=== PATIENT | female | born 1990 | race Caucasian/White ===

== ENCOUNTER 2020-08-09 05:02 | Emergency (ER) | payer OTHER, SELFPAY ==
--- NOTE | ~2020-08-09 | XR_ITS ---
EXAMINATION: XR CHEST CLINICAL INFORMATION: Shortness of breath COMPARISON: None TECHNIQUE: Frontal view of the chest was obtained. FINDINGS: Normal symmetric lung volumes. No parenchymal consolidation. No pleural effusion. No pneumothorax. Cardiomediastinal silhouette and pulmonary vascularity are within normal limits. No acute osseous abnormalities. XR/XR chest 1V IMPRESSION: Unremarkable examination.
[2020-08-09 05:11] VITALS: BP 136/83; PULSE 95; RESP 24; TEMP 36.7; O2SAT 95; BMI 28.3
[2020-08-09 06:00] VITALS: PULSE 78; RESP 16; O2SAT 98
[2020-08-09 06:17] VITALS: O2SAT 98
[2020-08-09] MEDS: Albuterol Sulfate 90 MCG 8 GM INHALER 2 PUFF INHALE (06:31)
[2020-08-09 06:32] VITALS: PULSE 81; O2SAT 96
[2020-08-09] MEDS: predniSONE 20 MG TABLET 40 MG PO (06:43)
--- NOTE | 2020-08-09 06:47 | ED.URI ---
HPI - URI/Sore Throat General Chief Complaint: Upper Respiratory Symptoms Stated Complaint: Extreme Fatigue for about 3 days Time Seen by Provider: 08/09/20 06:18 History of Present Illness HPI Narrative: Patient is a 30-year-old female with a history of asthma. Patient never been admitted to the hospital in the past multiple ED visits in the past. Complaining of coughing upper respiratory symptoms. She did not receive her coronavirus vaccine. Patient from home. Positive history of smoking. No chest pain. Complaining of increasing shortness of breath for the last 3 days coughing. There is no change in smell or taste. Patient denies any fever. Denies any GI symptoms. No recent travel. Related Data Previous Rx's Medication Instructions Recorded albuterol sulfate 2 puff INHALATION Q6H PRN #8.5 g 08/09/20 azithromycin See Rx Instructions .ROUTE 08/09/20 .COMPLEX #6 tab prednisone 40 mg PO DAILY #10 tab 08/09/20 Allergies Allergy/AdvReac Type Severity Reaction Status Date / Time tree nut [TREE NUT] Allergy Severe ITCHING Unverified 08/09/20 05:30 nuts Allergy Unknown Hives Uncoded 08/09/20 05:30 seasonal Allergy Unknown Hives Uncoded 08/09/20 05:30 Review of Systems Review of Systems: Constitutional: No Weight loss, No Fever, No Chills, No Night Sweats, No Fatigue, No Malaise ENT/Mouth: No Hearing loss, No Ear Pain, No Nasal Congestion, No Sinus Pain, No Hoarseness, No sore throat, No Rhinorrhea, No Swallowing Difficulty Eyes: No Eye Pain, No Swelling, No Redness, No Foreign Body, No Discharge, No Vision Changes Cardiovascular: No Chest Pain, No SOB, No Dyspnea on Exertion, No Orthopnea, No Edema, No Palpitations Respiratory: No Cough, No Sputum, No Wheezing, No Smoke Exposure, positive Dyspnea Gastrointestinal: No Nausea, No Vomiting, No Diarrhea, No Constipation, No abdominal Pain, No Hematochezia, No Melena Genitourinary: no irregular bleeding, No Dysuria, No Urinary Frequency, No Hematuria, No Urinary Incontinence, No Urgency, No Flank Pain, No Urinary Flow Changes, No Hesitancy Musculoskeletal: No joint pain, No Myalgias, No Joint Swelling Skin: No Skin Lesions, No rash Neuro: No Weakness, No Numbness, No Paresthesias, No Loss of Consciousness, No Dizziness, No Headache Psych: No Anxiety/Panic, No Depression, No SI/HI/AH/VH, No Social Issues, Heme/Lymph: No Bruising, No Bleeding,No Lymphadenopathy Endocrine: No Polyuria, No Polydipsia, No Temperature Intolerance [facility] Past Medical History Attestation statement: The following information was validated with the patient. Social History Social History Advance Directives: No Advance Directives Information Provided: No Patient : No Physical Exam Vital Signs: Vital Signs: Last Vital Signs Temp 98.1 F 08/09/20 05:11 Pulse 81 08/09/20 06:32 Resp 16 08/09/20 06:00 BP 136/83 08/09/20 05:11 Pulse Ox 98 08/09/20 06:17 Body Mass Index 28.3 Appearance: Alert. Oriented X3. No acute distress. Eyes: Pupils equal, round and reactive to light. ENT: Pharynx normal. Neck: Normal inspection. Neck supple. No lymph nodes noted. No crepitus CVS: Normal heart rate and rhythm. Pulses normal. Normal S1 and S2 Respiratory: No respiratory distress. Positive wheezing bilaterally. Moving good amount air. No retraction noted. Abdomen: Soft and nontender. No rigidity. No distention. good BS x4 Skin: Skin warm and dry. Normal skin color. Normal skin turgor. Extremities: No lower extremity edema. Neurovascular intact to all extremities. No Lacerations. No Rash Neuro: Oriented X 3. No motor deficit. No sensory deficit. Moving all extermities. No slurred speech MDM - URI/Sore Throat MDM Narrative Medical decision making narrative: Patient's O2 sats 95% on room air. Will go ahead give some steroids. Will give albuterol inhalers. A chest x-ray was ordered. A coronavirus test was ordered. Will monitor carefully. In no distress. Chest x-ray showed no focal infiltrates. Patient well appearing. Given steroid and inhaler with marked improvement in patient's symptoms. Patient's COVID test was negative. In stable condition with discharge home. Differential Diagnosis Differential diagnosis: Likely upper respiratory infection Lab Data Labs: Lab Results 08/09/20 Range/Units 06:51 COVID-19 (MARGARET) Negative (Negative) COVID-19 Clin Com See Note Discharge Plan Discharge Clinical Impression: Upper respiratory infection, Asthma attack Patient Disposition: Home, Self-Care Instructions: Asthma (ED) Prescriptions: New azithromycin 250 mg tablet See Rx Instructions .ROUTE .COMPLEX Qty: 6 RF: 0 prednisone 20 mg tablet 40 mg PO DAILY Qty: 10 RF: 0 albuterol sulfate 90 mcg/actuation HFA aerosol inhaler 2 puff inhalation Q6H PRN (Reason: shortness of breath or wheezing) Qty: 8.5 RF: 0 Referrals: Eduin Wallace MD [Primary Care Provider] - 2 days
[2020-08-09 07:09] LABS: COVID-19 Test Negative (Negative)
== END 2020-08-09 07:32 | disposition home or self-care (01) ==
PROVIDERS: Emergency Provider Emergency Medicine Emergency Medical Services; PCP Internal Medicine
DX: J06.9 Acute upper respiratory infection, unspecified (principal); J45.909 Unspecified asthma, uncomplicated; Z20.822 Contact with and (suspected) exposure to COVID-19
CPT/HCPCS: 36415; 71045; 87635; 94640; 94664; 99284

== ENCOUNTER 2021-06-17 08:00 | Observation (INO) | payer OTHER, SELFPAY ==
[2021-06-17] VITALS (13 sets, daily range): BP systolic 113–136; BP diastolic 66–89; PULSE 82–127; RESP 16–25; TEMP 36.3–37.1; O2SAT 94–100; BMI 27.4; BMI 28.0
--- NOTE | ~2021-06-17 | XR_ITS ---
EXAMINATION: XR CHEST CLINICAL INFORMATION: Cough COMPARISON: Previous chest x-ray July 2020 TECHNIQUE: Frontal view of the chest was obtained. FINDINGS: No significant abnormality is noted involving the heart, lungs, mediastinum, bony thorax or soft tissues. XR/XR chest 1V IMPRESSION: Unremarkable examination.
--- NOTE | 2021-06-17 08:30 | ED.SOB ---
HPI - SOB/Dyspnea General Chief Complaint: Dyspnea Stated Complaint: SOB,H/O ASTHMA, RECENT FLU DX Time Seen by Provider: 06/17/21 08:25 Source: patient Mode of arrival: ambulatory Limitations: no limitations History of Present Illness HPI Narrative: this is a 31 years old female with history of asthma diagnosed yesterday with influenza on Tamiflu presented to the ED with a chief complaint of shortness of breath wheezing MD elicited complaint: shortness of breath, cough and asthma attack Pertinent past history: asthma Onset (ago): day(s) (1) Context: recent illness Timing: constant Severity: moderate Exacerbating factors: nothing Known history of: asthma Related Data Home Medications Medication Instructions Recorded Confirmed albuterol sulfate 2.5 mg INHALATION Q4H PRN 06/17/21 06/17/21 Previous Rx's Medication Instructions Recorded albuterol sulfate 90 mcg/actuation 2 puff INHALATION Q6H PRN #8.5 g 08/09/20 aerosol inhaler Allergies Allergy/AdvReac Type Severity Reaction Status Date / Time tree nut [TREE NUT] Allergy Severe ITCHING Unverified 08/09/20 05:30 nuts Allergy Unknown Hives Uncoded 08/09/20 05:30 seasonal Allergy Unknown Hives Uncoded 08/09/20 05:30 Review of Systems Review of Systems: Yes all other systems are reviewed and are negative Cardiovascular: Cardiovascular: Reports no additional cardiovascular complaints and Reports dyspnea Respiratory: Respiratory: Reports cough, Reports dyspnea and Reports wheezing Allergic/Immunologic: Allergic/Immunologic: Reports wheezing PMFSH Past Medical History PMFSH Narrative: hx asthma Medical History Asthma with exacerbation Social History Social History Advance Directives: No Advance Directives Information Provided: Yes Patient : No Physical Exam Vital Signs: Vital Signs: Last Vital Signs Temp 98.2 F 06/17/21 08:18 Pulse 120 H 06/17/21 13:10 Resp 21 H 06/17/21 13:10 BP 131/89 06/17/21 10:11 Pulse Ox 95 06/17/21 10:11 BMI result Body Mass Index 27.4 Const: General: cooperative Nutritional Appearance: well nourished Orientation/consciousness: patient oriented x3 HEENT: Head: Yes normal to inspection Ears: hearing grossly normal bilaterally General nose exam: Normal external nose present Face and sinus: Yes normal facial exam Mouth: Normal oral and palatal mucosa present Throat: Yes posterior oropharynx normal Neck: Neck: Yes normal visual inspection and Yes full ROM Chest: Chest palpation & inspection: normal inspection of the chest Resp: Effort & Inspection: audible wheezes Auscultation: wheezes Cardio: Jugular venous distension: no JVD Rate: regular rate Rhythm: regular rhythm GI: Inspection: Yes normal to inspection Palpation (GI): Soft to palpation, not firm and nontender Percussion: Yes normal to percussion Auscultation: normal bowel sounds Skin: General skin exam: no rashes or lesions noted, elasticity normal and turgor normal Lesions: no lesions Wounds: no wounds Neuro: General: patient oriented x3 Course Reevaluation(s) Reevaluation #1: I re-examined the patient she is still wheezy still very tight will infuse magnesium anticipate admission Reevaluation #2: doing better discussed with hospitalist admitted to [facility] MDM - SOB/Dyspnea Lab Data Result diagrams: 06/17/21 08:48 06/17/21 08:48 Labs: Lab Results 06/17/21 06/17/21 06/17/21 Range/Units 08:48 08:48 09:58 WBC 13.9 H (4.8-10.8) X10*3/uL RBC 4.94 (4.20-5.50) X10*6/uL Hgb 14.4 (12.0-16.0) g/dl Hct 41.9 (37.0-47.0) % MCV 84.8 (80.0-98.0) fL MCH 29.1 (27.0-33.0) pg MCHC 34.4 (31.0-35.0) g/dl RDW 12.8 (11.0-16.0) % Plt Count 258 (160-400) X10*3/uL MPV 10.6 (9.4-12.3) fL Immature Gran % (Auto) 0.4 (0.0-0.4) % Neut % (Auto) 87.4 H (45-73) % Lymph % (Auto) 4.5 L (20-40) % [place] % (Auto) 7.7 (2-11) % Eos % (Auto) 0.0 (0-4) % Baso % (Auto) 0.0 (0-2) % Lymph # (Auto) 0.6 L (1.2-4.9) X10*3/uL [place] # (Auto) 1.1 (0.1-1.2) X10*3/uL Eos # (Auto) 0.0 (0.0-0.4) X10*3/uL Baso # (Auto) 0.0 (0.0-0.2) X10*3/uL Abs Immat Gran (auto) 0.06 H (0.00-0.03) X10*3/uL Absolute Neuts (auto) 12.2 H (2.0-8.3) x10*3/uL Absolute Nucleated RBC 0.000 (0.0-0.012) X10*3/uL Nucleated RBC % (auto) 0.0 (0.0-0.2) /100WBC O2 Saturation 98.0 % ABG pH at Pt Temp 7.35 (7.35-7.45) ABG pCO2 at Pt Temp 27 L (32-45) mmHg ABG pO2 at Pt Temp 124 H (83-108) mmHg ABG HCO3 15 L (22-26) mmol/L ABG Base Excess (Actual) -7.8 mmol/L Sodium 140 (135-145) mmol/L Potassium 4.5 (3.3-5.1) mmol/L Chloride 108 (96-108) mmol/L Carbon Dioxide 21 L (22-29) mmol/L Anion Gap 16 (12-20) BUN 13 (9-16) mg/dL Creatinine 0.77 (0.5-1.4) mg/dL Estim Creat Clear Calc 102.3 Estimated GFR > 60 Random Glucose 122 H (60-115) mg/dL Calcium 9.5 (8.4-10.2) mg/dL COVID-19 (MARGARET) (Negative) COVID-19 Clin Com 06/17/21 Range/Units 10:58 WBC (4.8-10.8) X10*3/uL RBC (4.20-5.50) X10*6/uL Hgb (12.0-16.0) g/dl Hct (37.0-47.0) % MCV (80.0-98.0) fL MCH (27.0-33.0) pg MCHC (31.0-35.0) g/dl RDW (11.0-16.0) % Plt Count (160-400) X10*3/uL MPV (9.4-12.3) fL Immature Gran % (Auto) (0.0-0.4) % Neut % (Auto) (45-73) % Lymph % (Auto) (20-40) % [place] % (Auto) (2-11) % Eos % (Auto) (0-4) % Baso % (Auto) (0-2) % Lymph # (Auto) (1.2-4.9) X10*3/uL [place] # (Auto) (0.1-1.2) X10*3/uL Eos # (Auto) (0.0-0.4) X10*3/uL Baso # (Auto) (0.0-0.2) X10*3/uL Abs Immat Gran (auto) (0.00-0.03) X10*3/uL Absolute Neuts (auto) (2.0-8.3) x10*3/uL Absolute Nucleated RBC (0.0-0.012) X10*3/uL Nucleated RBC % (auto) (0.0-0.2) /100WBC O2 Saturation % ABG pH at Pt Temp (7.35-7.45) ABG pCO2 at Pt Temp (32-45) mmHg ABG pO2 at Pt Temp (83-108) mmHg ABG HCO3 (22-26) mmol/L ABG Base Excess (Actual) mmol/L Sodium (135-145) mmol/L Potassium (3.3-5.1) mmol/L Chloride (96-108) mmol/L Carbon Dioxide (22-29) mmol/L Anion Gap (12-20) BUN (9-16) mg/dL Creatinine (0.5-1.4) mg/dL Estim Creat Clear Calc Estimated GFR Random Glucose (60-115) mg/dL Calcium (8.4-10.2) mg/dL COVID-19 (MARGARET) Negative (Negative) COVID-19 Clin Com See Note Critical Care Time Critical Care Time Critical Care Time: Yes Total Critical Care Time: 60 Attestation: multiple Nebs/IV magnesium/solumedrol.Severe Astma ex,Spent taking care pt ,reviewing labs,cxr Discharge Plan Discharge Clinical Impression: Asthma with exacerbation Patient Disposition: Admitted As Inpatient
[2021-06-17 08:52] LABS: MANUAL DIFF FLAG NO
[2021-06-17] MEDS: methylPREDNISolone Sod Succ 125 MG/2 ML VIAL IVPUSH (08:53)
[2021-06-17 08:54] LABS: Hematocrit 41.9 % (37.0-47.0); Hemoglobin 14.4 g/dl (12.0-16.0); Imm Gran Abs Auto 0.06 X10*3/uL (0.00-0.03); Imm Gran Pct Auto 0.4 % (0.0-0.4); Lymphocytes Absolute Auto 0.6 X10*3/uL (1.2-4.9); Lymphocytes Percent Auto 4.5 % (20-40); Mean Corpuscular HGB Conc 34.4 g/dl (31.0-35.0); Mean Corpuscular Hemoglobin 29.1 pg (27.0-33.0); Mean Corpuscular Volume 84.8 fL (80.0-98.0); Mean Platelet Volume 10.6 fL (9.4-12.3); Monocytes Absolute Auto 1.1 X10*3/uL (0.1-1.2); Monocytes Percent Auto 7.7 % (2-11); Neutrophils Absolute Auto 12.2 x10*3/uL (2.0-8.3); Neutrophils Percent Auto 87.4 % (45-73); Platelet Count 258 X10*3/uL (160-400); Red Blood Count 4.94 X10*6/uL (4.20-5.50); Red Cell Distribution Width 12.8 % (11.0-16.0); White Blood Count 13.9 X10*3/uL (4.8-10.8)
[2021-06-17 09:14] LABS: Anion Gap 16 (12-20); Blood Urea Nitrogen 13 mg/dL (9-16); Calcium 9.5 mg/dL (8.4-10.2); Carbon Dioxide 21 mmol/L (22-29); Chloride 108 mmol/L (96-108); Creatinine Clr Calc Pharmacy 102.3; Estimated Glomerular Filt Rate > 60; Glucose Random 122 mg/dL (60-115); Potassium 4.5 mmol/L (3.3-5.1); Sodium 140 mmol/L (135-145)
[2021-06-17] MEDS: Albuterol Sulfate (0.083%) 2.5 MG/3 ML VIAL.NEB 7.5 MG INHALE (09:20)
--- NOTE | 2021-06-17 09:34 | PC.NURSE ---
Pt placed on albuterol updraft, shortly after reporting increasing SOB. On assessment, pt tripod and tight lung sounds however air movement heard. Magnesium started per verbal order. Pt feeling better at this time, Mag continues to infuse. tachy on tele 140s. Dr Robb to bedside for re eval.
[2021-06-17 10:08] LABS: ABG Base Excess -7.8 mmol/L; ABG HCO3 15 mmol/L (22-26); ABG pCO2 27 mmHg (32-45); ABG pH 7.35 (7.35-7.45); ABG pO2 124 mmHg (83-108)
[2021-06-17] MEDS: Magnesium Sulfate/H2O 2 GM/50 ML PIGGYBACK IV (10:10)
[2021-06-17] MEDS: Albuterol/Iprat 2.5/0.5MG 3 ML AMPUL.NEB INHALE (10:15)
--- NOTE | 2021-06-17 10:42 | PHA.MEDREC ---
Pharmacy Consult ? Medication Reconciliation Pharmacy has completed the medication reconciliation.
[2021-06-17 11:23] LABS: COVID-19 Test Negative (Negative)
--- NOTE | 2021-06-17 12:52 | P.HPHOSP_ITS ---
History of Present Illness Date of Service: 06/17/21 Chief Complaint: shortness of breath, wheezing a 31 years old female with PMH of asthma who presents to the hospital with asthma exacerbation and influenza a infection. The patient reported that she has been feeling well until 2 days ago when she started to fever and upper respiratory symptoms of mainly dyspnea and wheezing that did not respond to home therapy with inhalers and nebulizers. Denies any chest pain, nausea, vomiting, change in bowel habit or urinary symptoms. Tested positive for influenza A yesterday. Admitted for observation. Review of Systems Review of Systems: Reporting subjective fever, chills with no weakness No chest pain, palpitation having dyspnea, wheezing and episodes of cough No abdominal pain, nausea or vomiting No urinary symptoms No any rash or wounds PMFSH Medical History Asthma with exacerbation Social History Advance Directives: No Advance Directives Information Provided: Yes Patient : No Meds Allergies Allergy/AdvReac Type Severity Reaction Status Date / Time tree nut [TREE NUT] Allergy Severe ITCHING Unverified 08/09/20 05:30 nuts Allergy Unknown Hives Uncoded 08/09/20 05:30 seasonal Allergy Unknown Hives Uncoded 08/09/20 05:30 Active Medications: Current Medications Pharmacy Consult (Consult Rx Perform Med Rec) 1 each MISCELLANE ONCE PRN PRN Reason: Consult order Home Medications Medication Instructions Recorded Confirmed Last Taken Type albuterol sulfate 2.5 mg INHALATION Q4H PRN 06/17/21 06/17/21 Unknown History Physical Exam Vital Signs and Narrative: Vital Signs: Last Vital Signs Temp 98.2 F 06/17/21 08:18 Pulse 127 H 06/17/21 10:15 Resp 25 H 06/17/21 10:15 BP 131/89 06/17/21 10:11 Pulse Ox 95 06/17/21 10:11 BMI result Body Mass Index 27.4 Const: Other: Constitutional : Alert, oriented, in mild respiratory distress Neck : Normal inspection, Supple Cardiovascular : RRR, no JVP, no lower extremity edema Respiratory : decreased bilateral air entry, no crackles, basal bilateral scattered wheezes Gastrointestinal: soft, lax, Normal bowel sounds, Non tender Skin : Warm, Dry Neurological : Alert & oriented x3, No focal deficit , CN 2-12 within normal Results Labs CBC and Chem 7: 06/17/21 08:48 06/17/21 08:48 Labs: Laboratory Results - last 24 hr 06/17/21 06/17/21 06/17/21 08:48 08:48 09:58 MCV 84.8 MCH 29.1 MCHC 34.4 RDW 12.8 Plt Count 258 MPV 10.6 Immature Gran % (Auto) 0.4 Neut % (Auto) 87.4 H Lymph % (Auto) 4.5 L Mason % (Auto) 7.7 Eos % (Auto) 0.0 Baso % (Auto) 0.0 Lymph # (Auto) 0.6 L Mason # (Auto) 1.1 Eos # (Auto) 0.0 Baso # (Auto) 0.0 Abs Immat Gran (auto) 0.06 H Absolute Neuts (auto) 12.2 H Absolute Nucleated RBC 0.000 Nucleated RBC % (auto) 0.0 O2 Saturation 98.0 ABG pH at Pt Temp 7.35 ABG pCO2 at Pt Temp 27 L ABG pO2 at Pt Temp 124 H ABG HCO3 15 L ABG Base Excess (Actual) -7.8 Anion Gap 16 Estim Creat Clear Calc 102.3 Estimated GFR > 60 Random Glucose 122 H Calcium 9.5 COVID-19 (MARGARET) COVID-19 Clin Com 06/17/21 10:58 MCV MCH MCHC RDW Plt Count MPV Immature Gran % (Auto) Neut % (Auto) Lymph % (Auto) Mason % (Auto) Eos % (Auto) Baso % (Auto) Lymph # (Auto) Mason # (Auto) Eos # (Auto) Baso # (Auto) Abs Immat Gran (auto) Absolute Neuts (auto) Absolute Nucleated RBC Nucleated RBC % (auto) O2 Saturation ABG pH at Pt Temp ABG pCO2 at Pt Temp ABG pO2 at Pt Temp ABG HCO3 ABG Base Excess (Actual) Anion Gap Estim Creat Clear Calc Estimated GFR Random Glucose Calcium COVID-19 (MARGARET) Negative COVID-19 Clin Com See Note Imaging Radiologist's Impressions: Impressions Chest X-Ray 06/17/21 09:05 IMPRESSION: Unremarkable examination. Assessment and Plan (1) Asthma with exacerbation: Status: Acute Plan a 31 years old female with PMH of asthma who presents to the hospital with asthma exacerbation and influenza a infection. asthma exacerbation Secondary to influenza a infection Continue Tamiflu day 2 Started IV steroids DuoNebs inhaler wean oxygen down as tolerated DVT PPX L ambulation Quality Stroke Does the patient have a stroke diagnosis?: No VTE Prior VTE?: No VTE Risk Level:: Medical - low VTE Device Contraindication: Treatment Not Indicated VTE Drug Contraindication: Treatment Not Indicated
[2021-06-17] MEDS: Albuterol Sulfate (0.083%) 2.5 MG/3 ML VIAL.NEB INHALE ×3 (13:10→19:53)
[2021-06-17] MEDS: Oseltamivir Phosphate 75 MG CAPSULE PO (14:27)
[2021-06-17] MEDS: 0.9 % Sodium Chloride Flush 3 ML SYRINGE IVFLUSH ×2 (14:46→20:03)
[2021-06-17 15:56] LABS: ABG Refer to POC result
[2021-06-17] MEDS: Acetaminophen 325 MG TABLET 650 MG PO (20:07)
[2021-06-18] MEDS: Albuterol Sulfate (0.083%) 2.5 MG/3 ML VIAL.NEB INHALE ×3 (04:28→11:36)
[2021-06-18 04:30] VITALS: PULSE 76; O2SAT 96
[2021-06-18 07:38] VITALS: PULSE 89; RESP 18; O2SAT 96
[2021-06-18 08:00] VITALS: BP 152/83; PULSE 95; RESP 18; TEMP 36.6; O2SAT 96
[2021-06-18] MEDS: 0.9 % Sodium Chloride Flush 3 ML SYRINGE IVFLUSH (08:36)
[2021-06-18] MEDS: methylPREDNISolone Sod Succ 40 MG/ML VIAL IVPUSH (08:36)
[2021-06-18] MEDS: guaiFENesin LA 600 MG TAB.ER.12H PO (08:41)
[2021-06-18 08:42] VITALS: BP 115/76
--- NOTE | 2021-06-18 10:28 | MHC.CM.PN ---
Lives at home w/ and child. Previously independent, drives, so equip. D/C plan is home w/ via at time of D/C. CM to follow.
[2021-06-18 11:36] VITALS: PULSE 86; RESP 18; O2SAT 97
--- NOTE | 2021-06-18 12:00 | P.DS_ITS ---
DS: Providers Provider Date of Service: 06/18/21 Date of admission: 06/17/21 12:45 Primary care physician: Unknown Physician DS: Diagnosis Discharge Diagnosis (1) Asthma with exacerbation: Status: Acute DS: Summary Hospital Course Hospital Course: Admission note HPI ?a 31 years old female with PMH of asthma who presents to the hospital with asthma exacerbation and influenza a infection.? The patient reported that she has been feeling well until 2 days ago when she started to fever and upper respiratory symptoms of mainly dyspnea and wheezing that did not respond to home therapy with inhalers and nebulizers.? Denies any chest pain, nausea, vomiting, change in bowel habit or urinary symptoms.? Tested positive for influenza A yesterday. Admitted for observation. hospital course The patient was observed in the hospital for acute asthma exacerbation. Respon ded well to treatment with steroids, nebulizer of DuoNeb as she was tested positive for influenza A day prior to admission. Was able to ambulate freely on room air with significant improvement of the wheezing and dyspnea. Continue to use your nebulizer 3-4 times daily for the next few days Continue Tamiflu therapy for influenza infection Continue prednisone for 4 more days Time Spent with Patient Time attestation: Total time spent providing and/or coordinating discharge services: Discharge coordination time: Less than 30 minutes Quality: Safe Use of Opioids Does Pt have an Active Cancer Diagnosis on the Problem List?: No Quality: Stroke Does the patient have a stroke diagnosis?: No Physical Exam Vital Signs: Vital Signs: Last Vital Signs Temp 98 F 06/18/21 08:00 Pulse 86 06/18/21 11:36 Resp 18 06/18/21 11:36 BP 115/76 06/18/21 08:42 Pulse Ox 96 06/18/21 08:00 BMI result Body Mass Index 28.0 Const: Other: Constitutional : Alert, Interactive, not in distress Neck : Normal inspection, Supple Cardiovascular : RRR, no JVP, no lower extremity edema Respiratory : good bilateral air entry, no crackles, scattered bilateral wheezes Gastrointestinal: soft, lax, Normal bowel sounds, Non tender Skin : Warm, Dry Neurological : Alert & oriented x3, No focal deficit , CN 2-12 within normal Discharge Plan Discharge Patient Disposition: Home, Self-Care Referrals: Physician,Unknown J [Primary Care Provider] - 1 Week Discharge Medications: New oseltamivir [Tamiflu] 75 mg Capsule 75 mg PO Q12H 3 Days Qty: 6 0RF guaifenesin [Mucinex] 600 mg Tablet Extended Release 12hr 600 mg PO BID 7 Days Qty: 14 0RF prednisone 20 mg tablet 40 mg PO DAILY Qty: 8 0RF Continued albuterol sulfate 90 mcg/actuation HFA aerosol inhaler 2 puff inhalation Q6H PRN (Reason: shortness of breath or wheezing) Qty: 8.5 0RF albuterol sulfate 2.5 mg /3 mL (0.083 %) Solution For Nebulization 2.5 mg INHALATION Q4H PRN (Reason: Shortness Of Breath) 0RF Discharge Orders: Discharge Order (Routine); Ordered 06/18/21 Ordered By: Carolina Aparicio Diet: advance to usual diet Activity on Discharge: As tolerated Stand Alone Forms: Patient Portal Discharge page Care Plan Goals: Read below Health Concerns: Read below Plan of Treatment: Read below Assessment: you were admitted to the hospital for observation o asthma exacerbation. Treated with steroids and nebulizers with good response overnight. Continue to use your nebulizer 3-4 times daily for the next few days Continue Tamiflu therapy for influenza infection Continue prednisone for 4 more days
--- NOTE | 2021-06-18 12:13 | MHC.CM.PN ---
order for home, self care; CM acknowledge.
[2021-06-18] MEDS: Oseltamivir Phosphate 75 MG CAPSULE PO (12:50)
== END 2021-06-18 14:16 | disposition home or self-care (01) ==
LOC: HO.ED 10:00 → HO.EDOVER 12:57 → HO.S3 13:08
PROVIDERS: Admitting Provider Student in an Organized Health Care Education/Training Program; Emergency Provider Emergency Medicine; Visit Provider Student in an Organized Health Care Education/Training Program
DX: J45.901 Unspecified asthma with (acute) exacerbation (principal); J10.1 Influenza due to other identified influenza virus with other respiratory manifestations; R05.9 Cough, unspecified; Z20.822 Contact with and (suspected) exposure to COVID-19; Z91.018 Allergy to other foods; Z79.899 Other long term (current) drug therapy
CPT/HCPCS: 36415; 71045; 80048; 82803; 85025; 87635; 94640; 94644; 96365; 96366; 96375; 96376; 99218; 99285; 99291; J2920; J2930; J3475

== ENCOUNTER 2021-12-29 16:04 | Observation (INO) | payer OTHER, SELFPAY ==
--- NOTE | ~2021-12-29 | XR_ITS ---
EXAMINATION: XR CHEST CLINICAL INFORMATION: Dyspnea COMPARISON: Chest x-ray 06/17/2021 TECHNIQUE: 2 views of the chest were obtained. FINDINGS: The lungs are clear. No airspace consolidation, pleural effusion, or pneumothorax. The cardiomediastinal silhouette is within normal limits. No acute osseous injury. XR/XR chest 2V IMPRESSION: No acute pulmonary process.
[2021-12-29 16:30] VITALS: BP 140/97; PULSE 96; RESP 20; TEMP 36.7; O2SAT 96; BMI 27.9
[2021-12-29 16:45] LABS: MANUAL DIFF FLAG NO
[2021-12-29 16:54] LABS: Basophils Percent Auto 0.5 % (0-2); Eosinophils Percent Auto 0.4 % (0-4); Hematocrit 44.4 % (37.0-47.0); Hemoglobin 15.2 g/dl (12.0-16.0); Imm Gran Abs Auto 0.02 X10*3/uL (0.00-0.03); Imm Gran Pct Auto 0.2 % (0.0-0.4); Lymphocytes Percent Auto 24.1 % (20-40); Mean Corpuscular HGB Conc 34.2 g/dl (31.0-35.0); Mean Corpuscular Hemoglobin 29.1 pg (27.0-33.0); Mean Corpuscular Volume 84.9 fL (80.0-98.0); Mean Platelet Volume 10.2 fL (9.4-12.3); Monocytes Absolute Auto 0.6 X10*3/uL (0.1-1.2); Monocytes Percent Auto 7.9 % (2-11); Neutrophils Absolute Auto 5.4 x10*3/uL (2.0-8.3); Neutrophils Percent Auto 66.9 % (45-73); Platelet Count 311 X10*3/uL (160-400); Red Blood Count 5.23 X10*6/uL (4.20-5.50); Red Cell Distribution Width 12.4 % (11.0-16.0); White Blood Count 8.1 X10*3/uL (4.8-10.8)
[2021-12-29 17:03] LABS: Anion Gap 18 (12-20); Blood Urea Nitrogen 19 mg/dL (9-16); Calcium 9.8 mg/dL (8.4-10.2); Carbon Dioxide 20 mmol/L (22-29); Chloride 106 mmol/L (96-108); Creatinine Clr Calc Pharmacy 101.7; Estimated Glomerular Filt Rate > 60; Glucose Random 99 mg/dL (60-115); Potassium 4.6 mmol/L (3.3-5.1); Sodium 139 mmol/L (135-145)
[2021-12-29 20:10] VITALS: BP 117/88; PULSE 103; RESP 18; TEMP 36.9; O2SAT 93
--- OUTSIDE RECORDS SUMMARY | 2021-12-29 20:45 | XMS_ITS | Continuity of Care Document ---
:1990 Author Organization [facility] Address [address] [place] [address], [address] [place] [id number]- Care Team Providers Name Role Phone Payal TORRE, Ramila Fischer Primary Care Physician Encounter [facility] Date(s): 01/06/20 - 02/05/20 [facility] [address] [place] [address], [address] [place] [id number] Allergies, Adverse Reactions, Alerts No Known Medication Allergies
[2021-12-29 21:42] VITALS: BP 104/68; PULSE 98; RESP 18; TEMP 38.1; O2SAT 94
[2021-12-29 21:44] LABS: Influenza A PCR NEGATIVE (Negative); Influenza B PCR NEGATIVE (Negative); Resp Syncy Virus RNA Qual PCR POSITIVE (Negative); SARS COV2 PCR INHOUSE NEGATIVE (Negative)
[2021-12-29] MEDS: Albuterol Sulfate 7.5 MG, Albuterol Sulfate (0.083%) 2.5 MG 10 MG INHALE (21:59)
[2021-12-29 22:02] VITALS: PULSE 90; RESP 18; O2SAT 94
--- NOTE | 2021-12-29 22:08 | ED.SOB ---
HPI - SOB/Dyspnea General Chief Complaint: Dyspnea Stated Complaint: diff. breathing, pneumonia ? Time Seen by Provider: 12/29/21 20:46 Source: patient Mode of arrival: ambulatory History of Present Illness HPI Narrative: 31-year-old female with presentation for increasing shortness of breath over the past 2-3 days and she has been using her albuterol inhaler at least 4 to 5 times a day, however it does not seem to be happening. She also complains of body aches, fatigue. Related Data Home Medications Medication Instructions Recorded Confirmed albuterol sulfate 2.5 mg/3 mL 2.5 mg inhalation Q4H PRN 06/17/21 06/17/21 (0.083 %) solution for nebulization Shortness Of Breath Previous Rx's Medication Instructions Recorded albuterol sulfate 90 mcg/actuation 2 puff inhalation Q6H PRN 08/09/20 aerosol inhaler shortness of breath or wheezing #8.5 grams guaifenesin 600 mg tablet, 600 mg PO BID 7 days #14 tabs 06/18/21 extended release 12 hr (Mucinex) oseltamivir 75 mg capsule (Tamiflu) 75 mg PO Q12H 3 days #6 caps 06/18/21 prednisone 20 mg tablet 40 mg PO DAILY #8 tabs 06/18/21 Allergies Allergy/AdvReac Type Severity Reaction Status Date / Time tree nut [TREE NUT] Allergy Severe ITCHING Verified 06/17/21 14:45 nuts Allergy Unknown Hives Uncoded 08/09/20 05:30 seasonal Allergy Unknown Hives Uncoded 08/09/20 05:30 Review of Systems Review of Systems: Pertinent positives and negatives as stated in HPI 10 point review of systems is otherwise negative. PMFSH Past Medical History Source: nursing notes reviewed Medical History Asthma with exacerbation Social History Social History Patient Tobacco Use Status: Current everyday Tobacco user Tobacco use type: Cigarette Cigarettes Per Day: 4 Second Hand Smoke Exposure: Yes Advance Directives: No Advance Directives Information Provided: No service: No Current occupational status: employed Physical Exam Vital Signs: Vital Signs: Last Vital Signs Temp 98.8 F 12/30/21 01:26 Pulse 108 H 12/30/21 01:26 Resp 16 11/05/22 01:26 BP 116/69 12/30/21 01:26 Pulse Ox 94 12/30/21 01:26 O2 Del Method 12/30/21 01:26 BMI result Body Mass Index 27.9 VITAL SIGNS: Reviewed. GENERAL: Well developed, well nourished, in no acute distress. HEAD: Normocephalic/atraumatic EYES: PERRLA, EOMI EARS: Ext canals without abnormality OROPHARYNX: no oral lesions noted, posterior pharynx clear LUNGS: Decreased breath sounds bilaterally, expiratory wheeze noted with increased work of breathing and tachypnea. SpO2<94> CARDIOVASCULAR: Regular rate and rhythm without noted murmurs ABDOMEN: Soft, non-tender, non-distended with bowel sounds. MUSCULOSKELETAL: No tenderness, deformities, or effusions noted on gross inspection. EXTREMITIES: No cyanosis, clubbing or edema. SKIN: Inspection of the skin reveals no rashes NEUROLOGIC: Alert and oriented x 4. Strength and sensation to light touch were grossly intact x 4. Course Course Course Narrative: 31-year-old female with history and clinical presentation consistent with acute asthma exacerbation as well as noted to be RSV positive. She is hypoxic and has received a total 3-10 mg albuterol treatments, magnesium, steroids and remains mildly hypoxic especially when asleep to 90-91%. She was placed on supplemental oxygen and I discussed the case with the inpatient hospitalist who accepts admission. Patient was informed of all results and plans. MDM - SOB/Dyspnea Lab Data Result diagrams: 12/29/21 16:38 12/29/21 16:38 Labs: Lab Results 12/29/21 12/29/21 12/29/21 Range/Units 16:38 16:38 21:00 WBC 8.1 (4.8-10.8) X10*3/uL RBC 5.23 (4.20-5.50) X10*6/uL Hgb 15.2 (12.0-16.0) g/dl Hct 44.4 (37.0-47.0) % MCV 84.9 (80.0-98.0) fL MCH 29.1 (27.0-33.0) pg MCHC 34.2 (31.0-35.0) g/dl RDW 12.4 (11.0-16.0) % Plt Count 311 (160-400) X10*3/uL MPV 10.2 (9.4-12.3) fL Immature Gran % (Auto) 0.2 (0.0-0.4) % Neut % (Auto) 66.9 (45-73) % Lymph % (Auto) 24.1 (20-40) % [place] % (Auto) 7.9 (2-11) % Eos % (Auto) 0.4 (0-4) % Baso % (Auto) 0.5 (0-2) % Lymph # (Auto) 2.0 (1.2-4.9) X10*3/uL [place] # (Auto) 0.6 (0.1-1.2) X10*3/uL Eos # (Auto) 0.0 (0.0-0.4) X10*3/uL Baso # (Auto) 0.0 (0.0-0.2) X10*3/uL Abs Immat Gran (auto) 0.02 (0.00-0.03) X10*3/uL Absolute Neuts (auto) 5.4 (2.0-8.3) x10*3/uL Absolute Nucleated RBC 0.000 (0.0-0.012) X10*3/uL Nucleated RBC % (auto) 0.0 (0.0-0.2) /100WBC Sodium 139 (135-145) mmol/L Potassium 4.6 (3.3-5.1) mmol/L Chloride 106 (96-108) mmol/L Carbon Dioxide 20 L (22-29) mmol/L Anion Gap 18 (12-20) BUN 19 H (9-16) mg/dL Creatinine 0.81 (0.5-1.4) mg/dL Estim Creat Clear Calc 101.7 Estimated GFR > 60 Random Glucose 99 (60-115) mg/dL Calcium 9.8 (8.4-10.2) mg/dL Influenza Type A (PCR) NEGATIVE (Negative) Influenza Type B (PCR) NEGATIVE (Negative) RSV RNA Qual (PCR) POSITIVE A (Negative) SARS-CoV-2 RNA (RT-PCR) NEGATIVE (Negative) Critical Care Time Critical Care Time Critical Care Time: Yes Total Critical Care Time: 30 Attestation: I personally attest to this time spent taking care of the patient. Discharge Plan Discharge Clinical Impression: Asthma with exacerbation, Respiratory syncytial virus (RSV) Patient Disposition: Admitted As Inpatient Prescriptions: No Action albuterol sulfate 90 mcg/actuation HFA aerosol inhaler 2 puff inhalation Q6H PRN (Reason: shortness of breath or wheezing) Qty: 8.5 0RF albuterol sulfate 2.5 mg /3 mL (0.083 %) Solution For Nebulization 2.5 mg INHALATION Q4H PRN (Reason: Shortness Of Breath) oseltamivir [Tamiflu] 75 mg Capsule 75 mg PO Q12H 3 Days Qty: 6 0RF guaifenesin [Mucinex] 600 mg Tablet Extended Release 12hr 600 mg PO BID 7 Days Qty: 14 0RF prednisone 20 mg tablet 40 mg PO DAILY Qty: 8 0RF
[2021-12-29] MEDS: Ibuprofen 400 MG TABLET PO (22:35)
[2021-12-29] MEDS: predniSONE 10 MG TABLET 50 MG PO (22:36)
[2021-12-29] MEDS: Acetaminophen 325 MG TABLET 975 MG PO (22:36)
[2021-12-29] MEDS: Albuterol Sulfate 7.5 MG, Albuterol/Iprat 2.5/0.5MG 3 ML 3 ML INHALE (22:40)
[2021-12-29 22:42] VITALS: PULSE 90; RESP 18; O2SAT 94
[2021-12-30] VITALS (7 sets, daily range): BP systolic 113–132; BP diastolic 68–80; PULSE 82–108; RESP 15–20; TEMP 36.9–37.2; O2SAT 93–95
[2021-12-30] MEDS: Albuterol Sulfate 7.5 MG, Albuterol/Iprat 2.5/0.5MG 3 ML 3 ML INHALE (00:32)
[2021-12-30] MEDS: methylPREDNISolone Sod Succ 125 MG/2 ML VIAL 80 MG IVPUSH (01:20)
[2021-12-30] MEDS: Magnesium Sulfate/H2O 2 GM/50 ML PIGGYBACK IV (01:21)
[2021-12-30] MEDS: methylPREDNISolone Sod Succ 40 MG/ML VIAL IVPUSH ×2 (03:41→15:43)
--- NOTE | 2021-12-30 06:22 | PC.NURSE ---
Patient trialled off of O2. Able to maintain O2 sats at 94% room air. Patient is resting comfortably at this time.
--- NOTE | 2021-12-30 06:32 | PM.IMHP ---
History of Present Illness Date of Service: 12/30/21 Chief Complaint: SOB 31-year-old female with past medical history of asthma presents to the hospital with complaints of shortness of breath and wheezing. Patient reports her symptoms started few days ago, has cough, some sputum production, significant wheezing. Rhinorrhea. She denies fever but had chills, reports using her inhalers with no relief. She was also trialed on Tamiflu with no relief of her symptoms. She denies any chest pain, no abdominal pain nausea or vomiting, no diarrhea constipation, no urinary symptoms and no lower extremity edema. On arrival to the ED patient hemodynamically stable with a temp of a 100.5 degrees, heart rate of 103, satting 93% on room air Labs are significant for WBC count of 8.1, labs otherwise unremarkable, RSV positive. Patient was given multiple rounds of 1 hour long breathing treatments with no relief of her symptoms are for should be admitted for asthma exacerbation Review of Systems Review of Systems: Yes all other systems are reviewed and are negative [facility] Medical History Asthma with exacerbation Family History (Updated 12/30/21 @ 06:34 by Karen Vargas MD) Other No family history of coronary artery disease Surgical History (Updated 12/30/21 @ 06:34 by Karen Vargas MD) No pertinent past surgical history Social History Patient Tobacco Use Status: Current everyday Tobacco user Tobacco use type: Cigarette Cigarettes Per Day: 4 Second Hand Smoke Exposure: Yes Advance Directives: No Advance Directives Information Provided: No service: No Current occupational status: employed Meds Allergies Allergy/AdvReac Type Severity Reaction Status Date / Time tree nut [TREE NUT] Allergy Severe ITCHING Verified 06/17/21 14:45 nuts Allergy Unknown Hives Uncoded 08/09/20 05:30 seasonal Allergy Unknown Hives Uncoded 08/09/20 05:30 Active Medications: Current Medications Acetaminophen (Acetaminophen 325 Mg Tablet) 650 mg PO Q6H PRN PRN Reason: Pain, Mild (Pain Scale 1-3) Albuterol/Ipratropium (Albuterol/Iprat 2.5/0.5mg 3 Ml Ampul.Neb) 3 ml INHALE RQ4H PRN PRN Reason: Shortness of Breath/Wheezing Albuterol/Ipratropium (Albuterol/Iprat 2.5/0.5mg 3 Ml Ampul.Neb) 3 ml INHALE RQ4H WHILE AWAKE [facility] Methylprednisolone Sodium Succinate (Methylprednisolone Sod Succ 40 Mg/Ml Vial) 40 mg IVPUSH Q12H [facility] Last Admin: 12/30/21 03:41 Dose: 40 mg Sodium Chloride (0.9 % Sodium Chloride Flush 3 Ml Syringe) 3 ml IVFLUSH QSHIFT [facility] Home Medications Medication Instructions Recorded Confirmed Last Taken Type albuterol sulfate 2.5 mg/3 mL 2.5 mg inhalation Q4H PRN 06/17/21 06/17/21 Unknown History (0.083 %) solution for nebulization Shortness Of Breath Physical Exam Vital Signs and Narrative: Vital Signs: Last Vital Signs Temp 98.5 F 12/30/21 06:27 Pulse 94 12/30/21 06:27 Resp 20 12/30/21 06:27 BP 113/68 12/30/21 06:27 Pulse Ox 94 12/30/21 06:27 O2 Del Method 12/30/21 06:27 O2 Flow Rate 2 12/30/21 03:44 BMI result Body Mass Index 27.9 Const: General: cooperative and no acute distress Orientation/consciousness: patient oriented x3 Eyes: General: appearance normal, both eyes and all related structures Resp: Other: Wheezing on expiration No evidence of respiratory distress at this time Effort & Inspection: normal respiratory effort Cardio: Rate: regular rate Rhythm: regular rhythm GI: Palpation (GI): Soft to palpation Auscultation: normal bowel sounds Skin: General skin exam: no rashes or lesions noted Neuro: General: patient oriented x3 Cognition (Neuro): normal cognition Extrem: General: Yes normal to inspection and Yes no pedal edema Results Labs CBC and Chem 7: 12/29/21 16:38 12/29/21 16:38 Labs: Laboratory Results - last 24 hr 12/29/21 12/29/21 12/29/21 16:38 16:38 21:00 MCV 84.9 MCH 29.1 MCHC 34.2 RDW 12.4 Plt Count 311 MPV 10.2 Immature Gran % (Auto) 0.2 Neut % (Auto) 66.9 Lymph % (Auto) 24.1 [place] % (Auto) 7.9 Eos % (Auto) 0.4 Baso % (Auto) 0.5 Lymph # (Auto) 2.0 [place] # (Auto) 0.6 Eos # (Auto) 0.0 Baso # (Auto) 0.0 Abs Immat Gran (auto) 0.02 Absolute Neuts (auto) 5.4 Absolute Nucleated RBC 0.000 Nucleated RBC % (auto) 0.0 Anion Gap 18 Estim Creat Clear Calc 101.7 Estimated GFR > 60 Random Glucose 99 Calcium 9.8 Influenza Type A (PCR) NEGATIVE Influenza Type B (PCR) NEGATIVE RSV RNA Qual (PCR) POSITIVE A SARS-CoV-2 RNA (RT-PCR) NEGATIVE Imaging Radiologist's Impressions: Impressions Chest X-Ray 12/29/21 16:47 IMPRESSION: No acute pulmonary process. Assessment and Plan (1) Asthma with exacerbation: Status: Acute (2) Respiratory syncytial virus (RSV): Status: Acute Plan 31-year-old female with past medical history of asthma presents to the hospital with asthma exacerbation # acute asthma exacerbation - wheezing, cough, no evidence of pneumonia on chest x-ray - secondary to RSV - will treat with DuoNebs, Solu-Medrol - follow respiratory status # RSV - supportive measures - underlying treatment of asthma exacerbation DVT prophylaxis: Early ambulation Quality Stroke Does the patient have a stroke diagnosis?: No VTE Prior VTE?: No VTE Risk Level:: Medical - low VTE Device Contraindication: Treatment Not Indicated VTE Drug Contraindication: Treatment Not Indicated
[2021-12-30 07:43] LABS: Basophils Percent Auto 0.1 % (0-2); Hematocrit 42.3 % (37.0-47.0); Hemoglobin 14.3 g/dl (12.0-16.0); Imm Gran Abs Auto 0.05 X10*3/uL (0.00-0.03); Imm Gran Pct Auto 0.6 % (0.0-0.4); Lymphocytes Absolute Auto 0.6 X10*3/uL (1.2-4.9); Lymphocytes Percent Auto 7.7 % (20-40); MANUAL DIFF FLAG SCAN; Mean Corpuscular HGB Conc 33.8 g/dl (31.0-35.0); Mean Corpuscular Hemoglobin 28.8 pg (27.0-33.0); Mean Corpuscular Volume 85.3 fL (80.0-98.0); Mean Platelet Volume 10.4 fL (9.4-12.3); Monocytes Absolute Auto 0.1 X10*3/uL (0.1-1.2); Neutrophils Absolute Auto 7.3 x10*3/uL (2.0-8.3); Neutrophils Percent Auto 90.6 % (45-73); Platelet Count 298 X10*3/uL (160-400); Red Blood Count 4.96 X10*6/uL (4.20-5.50); Red Cell Distribution Width 12.5 % (11.0-16.0); SCAN SMEAR FLAG 1; White Blood Count 8.1 X10*3/uL (4.8-10.8)
[2021-12-30] MEDS: Albuterol/Iprat 2.5/0.5MG 3 ML AMPUL.NEB INHALE ×2 (07:49→15:17)
[2021-12-30 07:50] LABS: Anion Gap 22 (12-20); Blood Urea Nitrogen 13 mg/dL (9-16); Calcium 9.2 mg/dL (8.4-10.2); Carbon Dioxide 13 mmol/L (22-29); Chloride 103 mmol/L (96-108); Creatinine Clr Calc Pharmacy 94.8; Estimated Glomerular Filt Rate > 60; Glucose Random 153 mg/dL (60-115); Potassium 4.2 mmol/L (3.3-5.1); Sodium 134 mmol/L (135-145)
[2021-12-30] MEDS: 0.9 % Sodium Chloride Flush 3 ML SYRINGE IVFLUSH ×2 (07:59→15:47)
[2021-12-30 08:21] LABS: SLIDE REVIEW VERIFIED
--- NOTE | 2021-12-30 09:18 | MHC.CM.PN ---
Patient is (+) RSV and unavailable by phone; CM spoke with Patient's /HCP/Sophia @ [phone] and addressed MCLEAN with her (original to be given to Patient and a copy to be mailed to Sophia). Patient lives in an apartment with her /HCP/Sophia and her 13 year old Stepdaughter and she is functionally independent and working at baseline. Home/self care is the goal and CM has initiated and will follow for dc planning. Patient has received [employer]ellitix vax x4 and her PCP has been through [facility] but she is presently not established with a Provider.
--- NOTE | 2021-12-30 09:50 | PC.NURSE ---
PT reports feeling a lot better denies any pain. Denies SOB. Reports cough and breathing treatments are helping. Inspiratory wheezing on osculation, PT sat at 94% on RA. Ambulating independently. No apparent distress.
--- NOTE | 2021-12-30 09:53 | PHA.MEDREC ---
Pharmacy Consult ? Medication Reconciliation Pharmacy has completed the medication reconciliation.
--- NOTE | 2021-12-30 11:50 | PM.EVENT ---
Event Note Date of Service: 12/30/21 Event Note: Day hospitalist update S: febrile to 100.5 @ 21:42 wheezing but dyspnea improved O: Temp Pulse Resp BP Pulse Ox O2 Del Method O2 Flow Rate 98.9 F 82 16 132/80 94 2 12/30/21 11:42 12/30/21 11:42 12/30/21 11:42 12/30/21 11:42 12/30/21 11:42 12/30/21 06:27 12/30/21 03:44 Gen: in no acute distress HEENT: sclera anicteric, moist mucus membranes Neck: supple Lungs: diffuse expiratory wheezing Heart: regular rate and rhythm, no murmurs Abd: soft, non-tender, non-distended Ext: no edema Skin: warm/well-perfused Neuro: alert and oriented x3, no focal findings Psych: appropriate affect A/P: hospital day#1 31yo F with asthma admitted with exacerbation due to RSV infection - continue steroids, standing/prn bronchodilators - no evidence for bacterial infection - anticipate d/c home possibly tomorrow if continued improvement
--- NOTE | 2021-12-30 16:22 | PC.NURSE ---
PT states feeling better, denies SOB. States I want to leave, I can be doing this at home . Dr. Aracely sierra.
--- NOTE | 2021-12-30 16:46 | P.DS_ITS ---
DS: Providers Provider Date of Service: 12/30/21 Date of admission: 12/30/21 02:34 Date of discharge: 12/30/21 Primary care physician: Unknown Physician DS: Diagnosis Discharge Diagnosis (1) Asthma with exacerbation: Status: Acute (2) Respiratory syncytial virus (RSV): Status: Acute DS: Summary Hospital Course Hospital Course: from admission h+P by hospitalist Karen Vargas MD, 12/30/21: 31-year-old female with past medical history of asthma presents to the hospital with complaints of shortness of breath and wheezing.? Patient reports her symptoms started few days ago, has cough, some sputum production, significant wheezing.? Rhinorrhea.? She denies fever but had chills, reports using her inhalers with no relief.? She was also trialed on Tamiflu with no relief of her symptoms. She denies any chest pain, no abdominal pain nausea or vomiting, no diarrhea constipation, no urinary symptoms and no lower extremity edema. On arrival to the ED patient hemodynamically stable with a temp of a 100.5 degrees, heart rate of 103, satting 93% on room air Labs are significant for WBC count of 8.1, labs otherwise unremarkable, RSV positive. Patient was given multiple rounds of 1 hour long breathing treatments with no relief of her symptoms are for should be admitted for asthma exacerbation She was admitted to the hospitalist service and her wheezing and dyspnea resolved. She was not hypoxic and there was no evidence of bacterial superinfection. She was discharged home on 5 days of prednisone and her albuterol solution for nebulization was refilled. Time Spent with Patient Time attestation: Total time spent providing and/or coordinating discharge services: 20 Discharge coordination time: Less than 30 minutes Quality: Safe Use of Opioids Does Pt have an Active Cancer Diagnosis on the Problem List?: No Quality: Stroke Does the patient have a stroke diagnosis?: No Physical Exam Vital Signs: Vital Signs: Last Vital Signs Temp 98.9 F 12/30/21 11:42 Pulse 82 12/30/21 11:42 Resp 16 12/30/21 11:42 BP 132/80 12/30/21 11:42 Pulse Ox 94 12/30/21 11:42 O2 Del Method 12/30/21 06:27 O2 Flow Rate 2 12/30/21 03:44 BMI result Body Mass Index 27.9 Gen: in no acute distress HEENT: sclera anicteric, moist mucus membranes Neck: supple Lungs: clear to auscultation bilaterally Heart: regular rate and rhythm, no murmurs Abd: soft, non-tender, non-distended Ext: no edema Skin: warm/well-perfused Neuro: alert and oriented x3, no focal findings Psych: appropriate affect DS: Data Data Completed and Pending Completed studies during hospitalization [Text1]: Laboratory Results WBC 8.1 X10*3/uL (4.8-10.8) 12/30/21 07:20 RBC 4.96 X10*6/uL (4.20-5.50) 12/30/21 07:20 Hgb 14.3 g/dl (12.0-16.0) 12/30/21 07:20 Hct 42.3 % (37.0-47.0) 12/30/21 07:20 MCV 85.3 fL (80.0-98.0) 12/30/21 07:20 MCH 28.8 pg (27.0-33.0) 12/30/21 07:20 MCHC 33.8 g/dl (31.0-35.0) 12/30/21 07:20 RDW 12.5 % (11.0-16.0) 12/30/21 07:20 Plt Count 298 X10*3/uL (160-400) 12/30/21 07:20 MPV 10.4 fL (9.4-12.3) 12/30/21 07:20 Immature Gran % (Auto) 0.6 % (0.0-0.4) H 12/30/21 07:20 Neut % (Auto) 90.6 % (45-73) H 12/30/21 07:20 Lymph % (Auto) 7.7 % (20-40) L 12/30/21 07:20 [place] % (Auto) 1.0 % (2-11) L 12/30/21 07:20 Eos % (Auto) 0.0 % (0-4) 12/30/21 07:20 Baso % (Auto) 0.1 % (0-2) 12/30/21 07:20 Lymph # (Auto) 0.6 X10*3/uL (1.2-4.9) L 12/30/21 07:20 [place] # (Auto) 0.1 X10*3/uL (0.1-1.2) 12/30/21 07:20 Eos # (Auto) 0.0 X10*3/uL (0.0-0.4) 12/30/21 07:20 Baso # (Auto) 0.0 X10*3/uL (0.0-0.2) 12/30/21 07:20 Abs Immat Gran (auto) 0.05 X10*3/uL (0.00-0.03) H 12/30/21 07:20 Absolute Neuts (auto) 7.3 x10*3/uL (2.0-8.3) 12/30/21 07:20 Absolute Nucleated RBC 0.000 X10*3/uL (0.0-0.012) 12/30/21 07:20 Nucleated RBC % (auto) 0.0 /100WBC (0.0-0.2) 12/30/21 07:20 Smear Tech's Comments VERIFIED 12/30/21 07:20 Sodium 134 mmol/L (135-145) L 12/30/21 07:20 Potassium 4.2 mmol/L (3.3-5.1) 12/30/21 07:20 Chloride 103 mmol/L (96-108) 12/30/21 07:20 Carbon Dioxide 13 mmol/L (22-29) L 12/30/21 07:20 Anion Gap 22 (12-20) H 12/30/21 07:20 BUN 13 mg/dL (9-16) 12/30/21 07:20 Creatinine 0.87 mg/dL (0.5-1.4) 12/30/21 07:20 Estim Creat Clear Calc 94.8 12/30/21 07:20 Estimated GFR > 60 12/30/21 07:20 Random Glucose 153 mg/dL (60-115) H 12/30/21 07:20 Calcium 9.2 mg/dL (8.4-10.2) D 12/30/21 07:20 Influenza Type A (PCR) NEGATIVE (Negative) 12/29/21 21:00 Influenza Type B (PCR) NEGATIVE (Negative) 12/29/21 21:00 RSV RNA Qual (PCR) POSITIVE (Negative) A 12/29/21 21:00 SARS-CoV-2 RNA (RT-PCR) NEGATIVE (Negative) 12/29/21 21:00 Impressions Chest X-Ray 12/29/21 16:47 IMPRESSION: No acute pulmonary process. Discharge Plan Discharge Patient Disposition: Home, Self-Care Discharge Diagnosis: asthma exacerbation due to RSV infection Referrals: Physician,Unknown J [Primary Care Provider] - 1 Week Discharge Medications: New prednisone 20 mg tablet 40 mg PO DAILY Qty: 10 0RF Continued albuterol sulfate 90 mcg/actuation HFA aerosol inhaler 2 puff inhalation Q6H PRN (Reason: shortness of breath or wheezing) Qty: 8.5 0RF guaifenesin [Mucinex] 600 mg tablet extended release 12hr 600 mg PO BID PRN (Reason: Congestion) albuterol sulfate 2.5 mg /3 mL (0.083 %) Solution For Nebulization 2.5 mg INHALATION Q4H PRN (Reason: Shortness Of Breath) Qty: 30 0RF Discharge Orders: Discharge Order (Routine); Ordered 12/30/21 Ordered By: Migue Jessica Diet: Advance to usual diet Activity on Discharge: As tolerated Stand Alone Forms: Patient Portal Discharge page Care Plan Goals: respiratory health Health Concerns: asthma exacerbation due to RSV infection Plan of Treatment: prednisone 40 mg daily x 5 days albuterol as needed, via nebulizer or inhaler, for rescue Please follow up with your primary care doctor within 1 week. [facility] if you experience recurrent or worsening symptoms. Assessment: See Discharge Summary.
--- NOTE | 2021-12-31 10:13 | MHC.CM.PN ---
Patient has been medically cleared for dc to home today, self care.
== END 2021-12-31 12:30 | disposition home or self-care (01) ==
LOC: HO.ED 12-30 02:37 → HO.EDOVER 12-30 02:41 → HO.S3 12-31 11:43 → HO.EDOVER 12-31 12:23
PROVIDERS: Admitting Provider Internal Medicine; Emergency Provider Student in an Organized Health Care Education/Training Program; Visit Provider Family Medicine
DX: J45.901 Unspecified asthma with (acute) exacerbation (principal); B97.4 Respiratory syncytial virus as the cause of diseases classified elsewhere; F17.210 Nicotine dependence, cigarettes, uncomplicated; Z20.822 Contact with and (suspected) exposure to COVID-19
CPT/HCPCS: 0241U; 36415; 71046; 80048; 85025; 94640; 96365; 96366; 96375; 96376; 99218; 99285; J2920; J2930; J3475

== ENCOUNTER 2024-08-01 07:51 | Emergency (ER) | payer BC, SELFPAY ==
--- NOTE | ~2024-08-01 | XR_ITS ---
CLINICAL HISTORY: sob Exam: AP portable chest x-ray. Comparison: None. Findings: Lungs are well inflated. Mediastinal contours, cardiac silhouette, and pulmonary vasculature are within normal limits. No focal areas of consolidation. No pleural effusions. Bilateral nipple piercings. Impression: No acute finding. This document has been electronically signed by: Koby Mac MD on 08/01/2024 09:11:25
[2024-08-01 08:10] VITALS: BP 123/86; PULSE 88; RESP 18; TEMP 36.5; O2SAT 100; BMI 29.4
[2024-08-01 08:38] VITALS: BP 115/70; PULSE 80; RESP 13; TEMP 36.5; O2SAT 100
[2024-08-01 08:49] LABS: MANUAL DIFF FLAG NO
[2024-08-01 08:51] LABS: Basophils Absolute Auto 0.1 X10*3/uL (0.0-0.2); Basophils Percent Auto 0.5 % (0-2); Eosinophils Absolute Auto 0.4 X10*3/uL (0.0-0.4); Eosinophils Percent Auto 3.3 % (0-4); Hematocrit 39.9 % (37.0-47.0); Hemoglobin 13.6 g/dl (12.0-16.0); Imm Gran Abs Auto 0.03 X10*3/uL (0.00-0.03); Imm Gran Pct Auto 0.3 % (0.0-0.4); Lymphocytes Absolute Auto 2.2 X10*3/uL (1.2-4.9); Mean Corpuscular HGB Conc 34.1 g/dl (31.0-35.0); Mean Corpuscular Hemoglobin 29.1 pg (27.0-33.0); Mean Corpuscular Volume 85.4 fL (80.0-98.0); Mean Platelet Volume 9.9 fL (9.4-12.3); Monocytes Absolute Auto 0.6 X10*3/uL (0.1-1.2); Monocytes Percent Auto 5.4 % (2-11); Neutrophils Absolute Auto 7.3 x10*3/uL (2.0-8.3); Neutrophils Percent Auto 69.5 % (45-73); Platelet Count 271 X10*3/uL (160-400); Red Blood Count 4.67 X10*6/uL (4.20-5.50); Red Cell Distribution Width 13.2 % (11.0-16.0); White Blood Count 10.5 X10*3/uL (4.8-10.8)
[2024-08-01] MEDS: Magnesium Sulfate/H2O 2 GM/50 ML PIGGYBACK IV (08:54)
[2024-08-01] MEDS: Albuterol Sulfate 2.5 MG, Albuterol/Iprat 2.5/0.5MG 3 ML 3 ML INHALE (09:02)
[2024-08-01 09:04] VITALS: PULSE 80; RESP 13; O2SAT 99
[2024-08-01 09:05] LABS: Alanine Aminotransferase 19 U/L (0-31); Albumin Level 4.5 g/dL (3.5-5.0); Alkaline Phosphatase 43 U/L (39-117); Anion Gap 10 (12-20); Aspartate Amino Transferase 25 U/L (5-31); Bilirubin Total 0.4 mg/dL (0.0-1.0); Blood Urea Nitrogen 14 mg/dL (9-16); Calcium 9.3 mg/dL (8.4-10.2); Carbon Dioxide 22 mmol/L (22-29); Chloride 111 mmol/L (96-108); Creatinine Clr Calc Pharmacy 114.7; Estimated Glomerular Filt Rate > 60; Glucose Random 88 mg/dL (60-115); Potassium 4.2 mmol/L (3.3-5.1); Sodium 139 mmol/L (135-145); Total Protein 7.8 g/dL (6.5-8.0)
--- NOTE | 2024-08-01 09:05 | PC.NURSE ---
Patient AxO x 3. PMH Asthma. Patient is a smoker. Present presents to ED c/o dyspnea which started . Patient was pushing vehicle when it broke down and has been trouble breathing ever since. Patient did use home medication which had no effect. Lung sounds are clear but tight. Respiratory in to see patient, patient currently on breathing treatment. VSS and up to date. Provider in to see patient plan of care on going
--- NOTE | 2024-08-01 09:21 | PC.NURSE ---
Patient c/o of pain at IV site, no redness or swelling noted. Currently infusing Mag, slowed infusion with somewhat relief.
[2024-08-01 09:27] LABS: Influenza A PCR NEGATIVE (Negative); Influenza B PCR NEGATIVE (Negative); Resp Syncy Virus RNA Qual PCR NEGATIVE (Negative); SARS COV2 PCR INHOUSE NEGATIVE (Negative)
--- OUTSIDE RECORDS SUMMARY | 2024-08-01 09:47 | XMS_ITS | Clinical Summary ---
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 Name Role Phone Unavailable Primary Care Provider Unavailabl e Immunizations Immunization Administration Dates Next Due DTP 10/26/1993, 1,1989,07/09,1989 HPV, Quadrivalent 07/02/2007,05/08/2007 Hep A 03/03/1998 Hep B, ped/adol 05/12/2001,11/03/1998,09/14/1997 Hib (PRP-T) 05/25/1994,05/25/1990 MMR 05/25/1994,05/25/1990 Meningococcal Conj (Menactra) MCV4P 09/18/2005 OPV 10/26/1993, 1,1989,05/09 Td (adult) (MBL), 2 Lf tetan us toxoid, PF, adsorbed 05/12/2001 Tdap 07/02/2007 Varicella 07/02/2007,08/11/2001 Family History Relation Name Status Comments Brother 1 Alive Brother: allerg ies, Obesity, allergies Brother 2 Alive Brother: allerg ies, Obesity, allergies Brother 3 Brother: allerg ies, Obesity, allergies Father Alive Father: Alive a nd well Mother Mother: Fibromy algia, Allergies, Asthma Other No family histo ry of Elevated cholesterol, No family history of Obesity, No family history of Deafness, No family history of Seizure disorder, No family history of Diabetes mellitus, No family history of Asthma, No family history of Sudden /NE under age 55, No family history of Strabismus/amblyopia, No family history of Developmental dislocation of hip, No family history of ADD/ADHD, No family history of Autism, No family history of Migraines Sister Alive Sister: Alive a nd well Social History Tobacco Use Types Packs/Day Years Used Date Smoking Tobacco: Never Assessed Comments Unknown Sex and Gender Information Value Date Recorded Sex Assigned at Not on file Legal Sex Female 4:46 PM EDT Gender Identity Not on file Sexual Orientation Not on file Plan of Treatment Health Maintenance Due Date Last Done Comments Hepatitis A Vaccines (2 of 2 - 2-dose series) 08/31/1998 03/03/1998 HPV Vaccines (3 - 3-dose series) 11/08/2007 07/02/2007, 05/08/2007 DTaP,Tdap,and Td Vaccines (7 - Td or Tdap) 07/01/2017 07/02/2007, 05/12/2001, 10/26/1993, Additional history exists Influenza Vaccines (#1) 2023 COVID-19 Vaccine ( season) 2023 IPV Vaccines Completed 10/26/1993, 07/27, 1989, Additional history exists HIB Vaccines Completed 05/25/1994, 05/25/1990 MMR Vaccines Completed 05/25/1994, 05/25/1990 Hepatitis B Vaccines Completed 05/12/2001, 11/03/1998, 09/14/1997 Meningococcal Vaccine Completed 09/18/2005 Varicella Vaccines Completed 07/02/2007, 08/11/2001 Men B Vaccine Aged Out No longer elig ible based on patient's age to complete this topic Pneumococcal Vaccine Aged Out No long er eligible based on patient's age to complete this topic
[2024-08-01 10:00] VITALS: BP 113/73; PULSE 89; RESP 15; TEMP 36.6; O2SAT 97
--- NOTE | 2024-08-01 11:09 | ED_ITS ---
HPI - SOB/Dyspnea General Chief Complaint: Dyspnea Stated Complaint: asthma Time Seen by Provider: 08/01/24 08:41 Source: patient and RN notes reviewed Mode of arrival: ambulatory Limitations: no limitations History of Present Illness ED Provider: Brittany Santos PA-C HPI Narrative: This is a 34-year-old female, with a past medical history of asthma, who presents emergency department with concerns for asthma exacerbation which started 2 days ago. Patient reports that 2 days ago she was pushing her vehicle when suddenly she felt her asthma become exacerbated. She has been using her at home inhalers as well as updrafts which has provided her without any relief. Patient denies any recent illness. Denies any fevers, chills, chest pain, abdominal pain, nausea, vomiting or diarrhea. She reports she used her updraft twice this morning without any relief. Reporting wheezing and increased work of breathing, feeling like her typical asthma exacerbations. No other complaints or concerns at this time. MD elicited complaint: shortness of breath Pertinent past history: asthma Onset (ago): day(s) Context: occurred during exertion Timing: constant Severity: moderate Exacerbating factors: exertion and movement Relieving factors: bronchodilators Known history of: asthma Treatment prior to arrival: bronchodilator Related Data Home oxygen amount: none Home Medications ?Medication ?Instructions ?Recorded ?Confirmed guaifenesin 600 mg tablet, 600 mg PO BID PRN Congestion 12/30/21 12/30/21 extended release 12 hr (Mucinex) Previous Rx's ?Medication ?Instructions ?Recorded albuterol sulfate 90 mcg/actuation 2 puff inhalation Q6H PRN 08/09/20 aerosol inhaler shortness of breath or wheezing #8.5 grams albuterol sulfate 2.5 mg/3 mL 2.5 mg (3 mL) inhalation Q4H PRN 12/30/21 (0.083 %) solution for nebulization Shortness Of Breath #30 ea prednisone 20 mg tablet 40 mg (2 x 20 mg) PO DAILY #10 tabs 12/30/21 prednisone 20 mg tablet 40 mg (2 x 20 mg) PO DAILY 4 days 08/01/24 #8 tabs Allergies Allergy/AdvReac Type Severity Reaction Status Date / Time tree nut [TREE NUT] Allergy Severe ITCHING Verified 08/01/24 08:12 nuts Allergy Unknown Hives Uncoded 08/09/20 05:30 seasonal Allergy Unknown Hives Uncoded 08/09/20 05:30 Review of Systems 2 Review of Systems: Constitutional: No Weight loss, No Fever, No Chills, No Night Sweats, No Fatigue, No Malaise ENT/Mouth: No Hearing loss, No Ear Pain, No Nasal Congestion, No Sinus Pain, No Hoarseness, No sore throat, No Rhinorrhea, No Swallowing Difficulty Eyes: No Eye Pain, No Swelling, No Redness, No Foreign Body, No Discharge, No Vision Changes Cardiovascular: No Chest Pain, + SOB, No Dyspnea on Exertion, No Orthopnea, No Edema, No Palpitations Respiratory: No Cough, No Sputum, + Wheezing, No Smoke Exposure, No Dyspnea Gastrointestinal: No Nausea, No Vomiting, No Diarrhea, No Constipation, No Abdominal pain, No Hematochezia, No Melena Genitourinary: No irregular bleeding, No Dysuria, No Urinary Frequency, No Hematuria, No Urinary Incontinence/retention, No Urgency, No Flank Pain, No Urinary Flow Changes, No Hesitancy Musculoskeletal: No joint pain, No Myalgias, No Joint Swelling Skin: No Skin Lesions, No rash Neuro: No Weakness, No Numbness, No Paresthesias, No Loss of Consciousness, No Dizziness, No Headache Psych: No Anxiety/Panic, No Depression, No SI/HI/AH/VH, No Social Issues, Heme/Lymph: No Bruising, No Bleeding,No Lymphadenopathy Endocrine: No Polyuria, No Polydipsia, No Temperature Intolerance Yes all other systems are reviewed and are negative Constitutional: Constitutional: Reports as per [facility] Past Medical History Medical History (Updated 08/01/24 @ 11:10 by KIRK Rey) Respiratory syncytial virus (RSV) Asthma with exacerbation Asthma with exacerbation Surgical History (Updated 12/30/21 @ 06:34 by Karen Vargas MD) No pertinent past surgical history Family History Family History (Updated 12/30/21 @ 06:34 by Karen Vargas MD) Other No family history of coronary artery disease Social History Social History Patient Tobacco Use Status: Current everyday Tobacco user Tobacco use type: Cigarette Cigarettes Per Day: 4 Smoked in Last 30 Days: Yes Second Hand Smoke Exposure: Yes Use of substances other than those prescribed or required for medical reasons: Yes Substance Use Type: Marijuana Substance Use Frequency: Daily Advance Directives: No Advance Directives Information Provided: No Patient : No service: No Current occupational status: employed Physical Exam 2 Vital Signs: Vital Signs: Last Vital Signs Temp 97.9 F 08/01/24 10:00 Pulse 89 08/01/24 10:00 Resp 15 08/01/24 10:00 BP 113/73 08/01/24 10:00 Pulse Ox 97 08/01/24 10:00 O2 Del Method Room Air 08/01/24 10:00 BMI result Body Mass Index 29.4 Const: General: cooperative, comfortable and no acute distress O rientation/consciousness: patient oriented x3 Limitations: no limitations HEENT: Head: Yes normal to inspection, Yes normocephalic and Yes atraumatic Ears: hearing grossly normal bilaterally General nose exam: Normal external nose present Face and sinus: Yes normal facial exam Mouth: Normal oral and palatal mucosa present, oropharynx normal and moist mucous membranes Throat: Yes posterior oropharynx normal Eyes: General: appearance normal, both eyes and all related structures E yelids: Yes eyelids normal Conjunctivae: conjunctivae normal Sclerae: s clerae normal Pupils: Equal, round and reactive pupils present EOM: EOMs intact bilaterally Neck: Neck: Yes normal visual inspection, Yes full ROM and Yes no lymphadenopathy Lymphatic: no lymphadenopathy noted Chest: Chest palpation & inspection: normal inspection of the chest Resp: Other: Lungs with tight inspiratory and expiratory wheezes, more profound in bilateral lung bases. Able to speak in full sentences however labored. No accessory respiratory muscle use. Effort & Inspection: normal respiratory effort and able to speak in complete sentences Cardio: Rate: regular rate Rhythm: regular rhythm Heart sounds: S1 normal heart sound present and S2 normal heart sound present GI: Inspection: Yes normal to inspection Skin: General skin exam: no rashes or lesions noted Trauma: no lacerations or abrasions Wounds: no wounds Neuro: General: patient oriented x3 and moves all extremities Cranial nerves: Yes Equal, round and reactive pupils present Extrem: General: Yes normal to inspection Right upper extremity: normal to inspection Left upper extremity: normal to inspection Right lower extremity: normal to inspection Left lower extremity: normal to inspection Medications Administered Discontinued Medications Generic Name Dose Route Start Last Admin Trade Name Freq PRN Reason Stop Dose Admin Albuterol Sulfate 2.5 mg/ 0 mg 08/01/24 08:55 08/01/24 09:02 Albuterol/Ipratropium 3 ml INHALE 08/01/24 08:56 1 dose ONCE ONE Administration Magnesium Sulfate 2 gm in 50 mls @ 150 mls/hr 08/01/24 08:50 08/01/24 09:31 Magnesium Sulfate/H2o IV 08/01/24 09:09 Infused ONCE ONE Infusion Methylprednisolone Sodium Succinate 60 mg 08/01/24 08:48 08/01/24 08:54 Methylprednisolone Sod Succ 125 Mg Vial IVPUSH 08/01/24 08:49 60 mg ONCE ONE Administration Medical Decision Making Medical Decision Making [facility] Narrative: This is a 34-year-old female who presents emergency department with concerns of wheezing and shortness for breath which started 2 days ago. On arrival, patient is speaking in full sentences, with increased work of breathing, and lungs with inspiratory and expiratory wheezes noted, more profound in the bilateral lung bases. Symptoms started 2 days ago after pushing a vehicle. She has no chest pain. History of asthma and symptoms feel similar. She has been using her inhalers at home without any relief. ED bronch protocol was initiated. Labs were obtained prior to my assessment, she has no leukocytosis, stable H&H, chemistry with no significant electrolyte derangement. She tested negative for COVID, flu, RSV. Chest x-ray was obtained revealing no acute findings. She was medicated with IV Solu-Medrol, IV magnesium, and an albuterol updraft. She was reassessed and she is feeling much better, lungs are clear to auscultation bilaterally. Will continue prednisone dosing, she has enough albuterol at home. Encouraged to follow-up with primary care physician. Given strict return precautions. Patient stable for discharge. Differential Diagnosis Differential Diagnoses: The differential diagnosis associated with the presentation includes Asthma exacerbation, reactive airway disease, COVID, flu Lab Data [facility] Lab Attestation statement: I reviewed the patient's lab results. See MDM and course 08/01/24 08:44 08/01/24 08:44 Labs: Lab Results 08/01/24 08/01/24 Range/Units 08:43 08:44 WBC 10.5 (4.8-10.8) X10*3/uL RBC 4.67 (4.20-5.50) X10*6/uL Hgb 13.6 (12.0-16.0) g/dl Hct 39.9 (37.0-47.0) % MCV 85.4 (80.0-98.0) fL MCH 29.1 (27.0-33.0) pg MCHC 34.1 (31.0-35.0) g/dl RDW 13.2 (11.0-16.0) % Plt Count 271 (160-400) X10*3/uL MPV 9.9 (9.4-12.3) fL Immature Gran % (Auto) 0.3 (0.0-0.4) % Neut % (Auto) 69.5 (45-73) % Lymph % (Auto) 21.0 (20-40) % [place] % (Auto) 5.4 (2-11) % Eos % (Auto) 3.3 (0-4) % Baso % (Auto) 0.5 (0-2) % Lymph # (Auto) 2.2 (1.2-4.9) X10*3/uL [place] # (Auto) 0.6 (0.1-1.2) X10*3/uL Eos # (Auto) 0.4 (0.0-0.4) X10*3/uL Baso # (Auto) 0.1 (0.0-0.2) X10*3/uL Abs Immat Gran (auto) 0.03 (0.00-0.03) X10*3/uL Absolute Neuts (auto) 7.3 (2.0-8.3) x10*3/uL Absolute Nucleated RBC 0.000 (0.0-0.012) X10*3/uL Nucleated RBC % (auto) 0.0 (0.0-0.2) /100WBC Sodium 139 (135-145) mmol/L Potassium 4.2 (3.3-5.1) mmol/L Chloride 111 H (96-108) mmol/L Carbon Dioxide 22 (22-29) mmol/L Anion Gap 10 L (12-20) BUN 14 (9-16) mg/dL Creatinine 0.69 (0.5-1.4) mg/dL Estim Creat Clear Calc 114.7 Estimated GFR > 60 Random Glucose 88 (60-115) mg/dL Calcium 9.3 (8.4-10.2) mg/dL Magnesium 2.0 (1.6-2.6) mg/dL Total Bilirubin 0.4 (0.0-1.0) mg/dL AST 25 (5-31) U/L ALT 19 (0-31) U/L Alkaline Phosphatase 43 (39-117) U/L Total Protein 7.8 (6.5-8.0) g/dL Albumin 4.5 (3.5-5.0) g/dL Influenza Type A (PCR) NEGATIVE (Negative) Influenza Type B (PCR) NEGATIVE (Negative) RSV RNA Qual (PCR) NEGATIVE (Negative) SARS-CoV-2 RNA (RT-PCR) NEGATIVE (Negative) Radiology Impression Discussion of test interpretation with radiology: I have reviewed the radiologist's reading. Radiologist Impression: [address] [address] XRay Report Signed Patient: Bronwyn Goss MR#: [id number] : 1990 Acct:[id number] Age/Sex: 34 / F ADM Date: 08/01/24 Loc: .ED Attending Dr: Ordering Physician: Generic ED Physician Date of Service: 08/01/24 Procedure(s): XR chest 1V Accession Number(s): [id number] cc: Generic ED Physician; Physician,Unknown ~ CLINICAL HISTORY: sob Exam: AP portable chest x-ray. Comparison: None. Findings: Lungs are well inflated. Mediastinal contours, cardiac silhouette, and pulmonary vasculature are within normal limits. No focal areas of consolidation. No pleural effusions. Bilateral nipple piercings. Impression: No acute finding. This document has been electronically signed by: Koby Mac MD on 08/01/2024 09:11:25 Dictated By: Koby Mac MD Signed By: <Electronically signed by Koby Mac MD in OV> Discharge Plan Discharge Clinical Impression: Asthma with exacerbation Patient Disposition: Home, Self-Care Instructions: Asthma (ED), Wheezing (ED), How Your Lungs Work (ED) Additional Instructions: You were seen in the emergency department due to shortness of breath. Your symptoms were consistent with an asthma exacerbation. We had given you IV medications including IV magnesium, Solu-Medrol, and a breathing treatment which provided you with good relief. Your chest x-ray does not show a pneumonia. Your blood work was reassuring. You tested negative for COVID, flu, and RSV. I am starting you on a prednisone course, please start this tomorrow as you already received your 1st dose of steroids in the emergency department today. Continue using your albuterol as needed. Follow-up with the primary care physician, I referred you to the [facility], call on Saturday to make an appointment. If any new or worsening symptoms occur including but not limited to worsening shortness of breath, chest pain, please seek emergent care. Prescriptions: New prednisone 20 mg tablet 40 mg PO DAILY 4 Days Qty: 8 0RF Rx Instructions: Start 08/02/2024 No Action albuterol sulfate 90 mcg/actuation HFA aerosol inhaler 2 puff inhalation Q6H PRN (Reason: shortness of breath or wheezing) Qty: 8.5 0RF guaifenesin [Mucinex] 600 mg tablet extended release 12hr 600 mg PO BID PRN (Reason: Congestion) prednisone 20 mg tablet 40 mg PO DAILY Qty: 10 0RF albuterol sulfate 2.5 mg /3 mL (0.083 %) Solution For Nebulization 2.5 mg INHALATION Q4H PRN (Reason: Shortness Of Breath) Qty: 30 0RF Referrals: [facility] [Physician] - Interventions: ED Discharge Assessment Last Done: 08/01/24 11:21 Print Language: Mohawk
[2024-08-01 11:21] VITALS: BP 115/74; PULSE 81; RESP 16; TEMP 36.4; O2SAT 98
== END 2024-08-01 11:23 | disposition home or self-care (01) ==
PROVIDERS: Emergency Provider Emergency Medicine
DX: J45.901 Unspecified asthma with (acute) exacerbation (principal); R06.02 Shortness of breath; Z79.899 Other long term (current) drug therapy; Z03.818 Encounter for observation for suspected exposure to other biological agents ruled out
CPT/HCPCS: 0241U; 71045; 80053; 83735; 85025; 94640; 96365; 96375; 99284; 99285; J2919; J3475

== ENCOUNTER → 2024-08-01 08:03 | Outpatient (BNV) | payer BC, SELFPAY | PROVIDERS: Emergency Provider Emergency Medicine; Visit Provider Radiology Diagnostic Radiology | DX: R06.02 Shortness of breath (principal) | CPT/HCPCS: 71045 ==

== ENCOUNTER 2025-02-23 15:36 | Outpatient (AMB) | payer BC, SELFPAY ==
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
[2025-02-23 15:41] VITALS: BP 124/80; PULSE 110; RESP 16; TEMP 36.7; O2SAT 95; BMI 27.5
--- OUTSIDE RECORDS SUMMARY | 2025-02-23 18:52 | XMS_ITS ---
Author Name [facility] Organization Unknown Care Team Organization Name Specialty Phone Email Start Date End Da te [facility] Venkatesh George [facility] 07/02/202210/13 [facility] JOSHUA Coates [facility] 01/02/202209/25
--- OUTSIDE RECORDS SUMMARY | 2025-02-23 18:52 | XMS_ITS | Clinical Summary ---
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
== END 2025-02-23 16:02 | disposition home or self-care (01) ==
LOC: HO.HMCH 15:37
DX: L03.031 Cellulitis of right toe (principal)